=== PATIENT | female | born 1995 | race Caucasian/White ===

== ENCOUNTER → 2017-03-10 | Outpatient (CLI) | payer OTHER ==
--- NOTE | 2017-03-10 10:22 | DIREP ---
PROCEDURE:XRAY ANKLE MIN 3VWS-RT COMPARISON:None. INDICATIONS:S90.911A INJURY OF RIGHT ANKLE INITIAL ENCOUNTER, FALL X 3 DAYS, BRUISING W/SWELLING FINDINGS: BONES:Normal. JOINTS:Normal. SOFT TISSUES:Moderate soft tissue swelling is seen over the lateral ankle. OTHER:No additional findings. CONCLUSION:There is moderate soft tissue swelling over the lateral ankle. No fracture is seen. Dictated by: Donovan Matthew M.D. on 03/10/2017 at 10:21 AM
--- NOTE | 2017-03-10 10:23 | DIREP ---
PROCEDURE:XRAY FOOT MIN 3 VWS-RT COMPARISON:None. INDICATIONS:S90.911A INJURY OF RIGHT ANKLE INITIAL ENCOUNTER FINDINGS: BONES:Normal. JOINTS:Normal. SOFT TISSUES:Normal. OTHER:No additional findings. CONCLUSION:Normal examination. Dictated by: Donovan Matthew M.D. on 03/10/2017 at 10:22 AM
== END | disposition home or self-care (01) ==
LOC: RAD 09:46
PROVIDERS: ATTEND Nurse Practitioner Family
DX: S90.911A Unspecified superficial injury of right ankle, initial encounter (principal); S90.921A Unspecified superficial injury of right foot, initial encounter; X58.XXXA Exposure to other specified factors, initial encounter; Y93.89 Activity, other specified; Y92.89 Other specified places as the place of occurrence of the external cause; Y99.8 Other external cause status
CPT/HCPCS: 73610-RT; 73630-RT